=== PATIENT | female | born 1985 | race Caucasian/White ===

== ENCOUNTER 2018-04-15 10:12 | Inpatient (IN) | payer BC ==
[~2018-04-15] VITALS: Ht 170.2 cm; Wt 122.7 kg
[~2018-04-15 10:12] MED LIST: DOCU-131 PO; IBUP-1222 PO; OXYC-302 PO; PNV1TABL11 PO
[2018-04-15] MEDS ORDERED: LACTATED RINGERS 1,000 ML IV SCH (10:13)
[2018-04-15] MEDS ORDERED: OXYTOCIN 30U/ 0.9% NaCL 500ML 500 ML IV SCH (10:13)
[2018-04-15] MEDS ORDERED: SODIUM CITRATE/CITRIC ACID 30 ML UDC ONE (10:24)
[2018-04-15] MEDS ORDERED: OXYTOCIN 30U/ 0.9% NaCL 500ML 500 ML ONE ×2 (10:24→13:45)
[2018-04-15] MEDS ORDERED: METOCLOPRAMIDE 5 MG/ML, 2ML ONE (10:24)
[2018-04-15] MEDS ORDERED: NEWBORN KIT ONE (10:24)
[2018-04-15] MEDS ORDERED: LACTATED RINGERS 1,000 ML IVBOLUS ONE (10:30)
[2018-04-15] MEDS ORDERED: SODIUM CITRATE/CITRIC ACID 30 ML UDC PO ONE (10:30)
[2018-04-15] MEDS ORDERED: METOCLOPRAMIDE 5 MG/ML, 2ML IV ONE (10:30)
[2018-04-15 10:52] LABS: BASOPHILS # (AUTO) 0.03 x10^3/uL (0-0.1); BASOPHILS % (AUTO) 0 % (0-1); EOSINOPHILS # (AUTO) 0.03 x10^3/uL (0-0.4); EOSINOPHILS % (AUTO) 0 % (1-7); LYMPHOCYTES # (AUTO) 1.45 x10^3/uL (1-3.4); LYMPHOCYTES % (AUTO) 15 % (22-44); MD NO; MEAN CORPUSCULAR HEMOGLOBIN 28.3 pg (27.0-34.8); MEAN CORPUSCULAR HGB CONC 33.3 g/dL (32.4-35.8); MEAN PLATELET VOLUME 8.5 fL (7.4-10.4); MONOCYTES # (AUTO) 0.64 x10^3/uL (0.2-0.8); MONOCYTES % (AUTO) 7 % (2-9); NEUTROPHILS # (AUTO) 7.55 x10^3/uL (1.8-6.8); NEUTROPHILS % (AUTO) 78 % (42-75); PLATELET COUNT 214 x10^3/uL (130-400); RED CELL DISTRIBUTION WIDTH 14.7 % (9.6-15.2)
[2018-04-15] MEDS ORDERED: FENTANYL PF 100 MCG/2ML ONE (11:15)
[2018-04-15] MEDS ORDERED: OXYTOCIN 10 UNITS/ML, 1ML ONE (11:15)
[2018-04-15] MEDS ORDERED: CEFAZOLIN 1,000 MG ONE (11:15)
[2018-04-15] MEDS ORDERED: ONDANSETRON 2MG/ML, 2ML ONE (11:15)
[2018-04-15] MEDS ORDERED: SODIUM CHLORIDE 0.9% PF 10ML ONE ×2 (11:16)
[2018-04-15] MEDS ORDERED: HYDROmorphone 2 MG/ML, 1ML ONE (11:16)
[2018-04-15] MEDS ORDERED: DIPH,PERTUSS(ACELL),TET VAC/PF NC IM-VACC PRN (12:00)
[2018-04-15] MEDS: LACTATED RINGERS 1,000 ML IV SCH ×4 (12:00→22:43)
[2018-04-15] MEDS ORDERED: ACETAMINOPHEN 325 MG TABLET PO PRN ×2 (12:00)
[2018-04-15] MEDS ORDERED: CALCIUM CARBONATE 500 MG TAB.CHEW PO PRN (12:00)
[2018-04-15] MEDS ORDERED: MISOPROSTOL 200 MCG TABLET PR PRN (12:00)
[2018-04-15] MEDS ORDERED: MEASLES,MUMPS&RUBELLA VACC/PF 0.5 ML SQ-VACC PRN (12:00)
[2018-04-15] MEDS ORDERED: morphine SULFATE 10 MG/ML, 1ML IVPush PRN ×2 (12:00)
[2018-04-15] MEDS ORDERED: ONDANSETRON 2MG/ML, 2ML IV PRN (12:00)
[2018-04-15] MEDS: OXYTOCIN 30U/ 0.9% NaCL 500ML 500 ML IV SCH ×2 (14:11→22:00)
[2018-04-15] MEDS ORDERED: KETOROLAC 30 MG/1 ML ONE (14:18)
[2018-04-15] MEDS: KETOROLAC 30 MG/1 ML IV SCH ×2 (14:19→20:21)
[2018-04-15] MEDS ORDERED: OXYcodone/APAP 5/325MG TABLET ONE ×2 (14:25→15:09)
[2018-04-15] MEDS: OXYcodone/APAP 5/325MG TABLET PO PRN ×4 (14:26→22:38)
[2018-04-15] MEDS ORDERED: DOCUSATE 100 MG CAPSULE ONE (15:09)
[2018-04-15 15:10] VITALS: BP 112/64
[2018-04-15] MEDS: DOCUSATE 100 MG CAPSULE PO PRN (15:10)
[2018-04-15 20:00] VITALS: BP 103/67
[2018-04-15 21:09] LABS: BASOPHILS # (AUTO) 0.01 x10^3/uL (0-0.1); BASOPHILS % (AUTO) 0 % (0-1); EOSINOPHILS # (AUTO) 0.04 x10^3/uL (0-0.4); EOSINOPHILS % (AUTO) 0 % (1-7); LYMPHOCYTES # (AUTO) 1.81 x10^3/uL (1-3.4); LYMPHOCYTES % (AUTO) 16 % (22-44); MD NO; MEAN CORPUSCULAR HEMOGLOBIN 28.1 pg (27.0-34.8); MEAN CORPUSCULAR HGB CONC 33.2 g/dL (32.4-35.8); MEAN CORPUSCULAR VOLUME 84.6 fL (80-100); MEAN PLATELET VOLUME 8.5 fL (7.4-10.4); MONOCYTES # (AUTO) 0.84 x10^3/uL (0.2-0.8); MONOCYTES % (AUTO) 7 % (2-9); NEUTROPHILS # (AUTO) 8.79 x10^3/uL (1.8-6.8); NEUTROPHILS % (AUTO) 77 % (42-75); PLATELET COUNT 188 x10^3/uL (130-400); RED BLOOD COUNT 3.62 x10^6/uL (3.82-5.3); RED CELL DISTRIBUTION WIDTH 14.8 % (9.6-15.2)
[2018-04-16 00:40] VITALS: BP 101/67
[2018-04-16] MEDS: KETOROLAC 30 MG/1 ML IV SCH ×4 (02:18→20:12)
[2018-04-16] MEDS: OXYcodone/APAP 5/325MG TABLET PO PRN ×5 (03:14→20:12)
[2018-04-16 03:25] VITALS: BP 101/67
[2018-04-16] MEDS: LACTATED RINGERS 1,000 ML IV SCH ×5 (04:00→20:00)
[2018-04-16] MEDS: OXYTOCIN 30U/ 0.9% NaCL 500ML 500 ML IV SCH ×2 (07:17→18:00)
[2018-04-16] MEDS: DOCUSATE 100 MG CAPSULE PO PRN ×2 (07:45→20:12)
[2018-04-16] MEDS: PRENATAL VIT/IRON/FA 1 EACH TABLET PO SCH (07:45)
[2018-04-16] MEDS: SIMETHICONE 80 MG CHEW TAB PO PRN ×2 (07:45→20:12)
[2018-04-16 07:50] VITALS: BP 109/74
[2018-04-16 19:31] VITALS: BP 109/62
[2018-04-17] MEDS: OXYcodone/APAP 5/325MG TABLET PO PRN ×5 (00:49→20:12)
[2018-04-17] MEDS: KETOROLAC 30 MG/1 ML IV SCH ×2 (01:47→08:27)
[2018-04-17] MEDS: OXYTOCIN 30U/ 0.9% NaCL 500ML 500 ML IV SCH ×2 (04:00→13:46)
[2018-04-17] MEDS: LACTATED RINGERS 1,000 ML IV SCH ×5 (04:00→20:00)
[2018-04-17 07:20] VITALS: BP 100/66
[2018-04-17] MEDS ORDERED: IBUPROFEN 600 MG TABLET ONE (08:24)
[2018-04-17] MEDS: DOCUSATE 100 MG CAPSULE PO PRN ×2 (08:26→20:12)
[2018-04-17] MEDS: PRENATAL VIT/IRON/FA 1 EACH TABLET PO SCH (08:26)
[2018-04-17] MEDS: IBUPROFEN 600 MG TABLET PO PRN ×3 (08:26→21:42)
[2018-04-17 19:55] VITALS: BP 100/58
[2018-04-17] MEDS: SIMETHICONE 80 MG CHEW TAB PO PRN (20:12)
[2018-04-18] MEDS: OXYcodone/APAP 5/325MG TABLET PO PRN ×4 (01:54→14:38)
[2018-04-18] MEDS: LACTATED RINGERS 1,000 ML IV SCH ×4 (04:00→12:00)
[2018-04-18] MEDS: IBUPROFEN 600 MG TABLET PO PRN ×2 (04:07→10:34)
[2018-04-18] MEDS: SIMETHICONE 80 MG CHEW TAB PO PRN (04:07)
[2018-04-18 07:30] VITALS: BP 108/70
[2018-04-18] MEDS: DOCUSATE 100 MG CAPSULE PO PRN (07:56)
[2018-04-18] MEDS: PRENATAL VIT/IRON/FA 1 EACH TABLET PO SCH (07:56)
[2018-04-18] MEDS: OXYTOCIN 30U/ 0.9% NaCL 500ML 500 ML IV SCH ×2 (10:00)
== END 2018-04-18 14:45 | disposition home or self-care (01) | DRG 788 ==
LOC: UNDOADMIN 10:12 → LDIP 10:12 → 2NW 15:20
PROVIDERS: ADMIT Obstetrics & Gynecology; ATTEND Obstetrics & Gynecology
PROC: 10D00Z1 Extraction of Products of Conception, Low, Open Approach (ICD-10-PCS; principal; 2018-04-15)
DX: O77.0 Labor and delivery complicated by meconium in amniotic fluid (principal); O34.211 Maternal care for low transverse scar from previous cesarean delivery; Z37.0 Single live birth; Z3A.39 39 weeks gestation of pregnancy
CPT/HCPCS: 36415; 82803; 85025; 86850; 86900; G0378; J0690; J1170; J1885; J2405; J3010; J2590; J2765; J7120

== ENCOUNTER 2019-01-07 08:00 | Emergency (ER) | payer BC ==
[~2019-01-07] VITALS: Ht 170.2 cm; Wt 117.3 kg
[2019-01-07] MEDS ORDERED: NORE0.352 PO (08:33)
[2019-01-07 08:59] LABS: MICROSCOPIC INDICATED
[2019-01-07 09:21] LABS: CULTURE INDICATED? NO
[2019-01-07] MEDS ORDERED: SODIUM CHLORIDE FLUSH 10ML SYR IVF ONE (09:30)
[2019-01-07] MEDS ORDERED: ONDANSETRON 2MG/ML, 2ML IVPush ONE (09:30)
[2019-01-07] MEDS ORDERED: KETOROLAC 30 MG/1 ML IVPush ONE (09:30)
[2019-01-07] MEDS ORDERED: ONDANSETRON 2MG/ML, 2ML ONE (09:49)
[2019-01-07] MEDS ORDERED: KETOROLAC 30 MG/1 ML ONE (09:49)
--- NOTE | 2019-01-07 10:00 | NUR ---
PT UPRIGHT ON GURNEY AWAKE & CALM, RESPONDS APPROP TO STAFF, AWAITING PIV & CT, LABS IN PROCESS, COMFORT MEASURES PROVIDED, CALL LIGHT WITHIN REACH.
--- NOTE | 2019-01-07 10:05 | NUR ---
THIS RN UNABLE TO OBTAIN PIV DESPITE MULT ATTEMPTS, AWAITING OTHER LADLE PULLER ASSIST.
[2019-01-07 10:12] LABS: BASOPHILS # (AUTO) 0.04 x10^3/uL (0-0.1); BASOPHILS % (AUTO) 1 % (0-1); EOSINOPHILS # (AUTO) 0.08 x10^3/uL (0-0.4); EOSINOPHILS % (AUTO) 1 % (1-7); LYMPHOCYTES # (AUTO) 1.49 x10^3/uL (1-3.4); LYMPHOCYTES % (AUTO) 23 % (22-44); MD NO; MEAN CORPUSCULAR HGB CONC 31.9 g/dL (32.4-35.8); MEAN CORPUSCULAR VOLUME 84.8 fL (80-100); MEAN PLATELET VOLUME 8.4 fL (7.4-10.4); MONOCYTES # (AUTO) 0.47 x10^3/uL (0.2-0.8); MONOCYTES % (AUTO) 7 % (2-9); NEUTROPHILS # (AUTO) 4.43 x10^3/uL (1.8-6.8); NEUTROPHILS % (AUTO) 68 % (42-75); PLATELET COUNT 240 x10^3/uL (130-400); RED BLOOD COUNT 5.25 x10^6/uL (3.82-5.3); RED CELL DISTRIBUTION WIDTH 15.3 % (9.6-15.2)
--- NOTE | 2019-01-07 10:18 | NUR ---
TASK RN: STAFF MEMBER BEDSIDE ATTEMPTING PIV ACCESS.
[2019-01-07 10:24] LABS: ANION GAP 4 mmol/L (5-15); CHLORIDE 110 mmol/L (98-107)
[2019-01-07 10:25] LABS: ALBUMIN 4.2 g/dL (3.4-5.0); CALCIUM 8.7 mg/dL (8.5-10.1); CREATININE 0.72 mg/dL (0.55-1.02)
--- NOTE | 2019-01-07 11:03 | NUR ---
PT RETURNED FROM CT, UPRIGHT ON GURNEY AWAKE & COMFORTABLE, RESPONDS APPROP TO STAFF, NAD, COMFORT MEASURES PROVIDED, CALL LIGHT WITHIN REACH.
--- NOTE | 2019-01-07 11:37 | NUR ---
TASK RN, FIRST CONTACT WITH PT. Pt resting on jamel requesting additonal blanket. Provied for pt. Pt appreciative. NADN. No needs expressed.
[2019-01-07 11:38] VITALS: BP 114/89
--- NOTE | 2019-01-07 12:02 | NUR ---
TASK RN: Patient given discharge instructions and they have confirmed that they understand the instructions. Patient ambulatory with steady gait. Pt left with d/c paperwork and all personal belongings. NADN. No other needs expressed.
== END 2019-01-07 12:06 | disposition home or self-care (01) ==
LOC: ED 08:52
DX: R10.32 Left lower quadrant pain (principal); M54.9 Dorsalgia, unspecified; R68.83 Chills (without fever)
CPT/HCPCS: 36415; 74176; 80048; 81001; 82040; 84703; 85025; 96374; 96375; 99284; J1885; J2405

== ENCOUNTER 2019-02-10 12:43 | Outpatient (CLI) | payer BC ==
[~2019-02-10 12:43] MED LIST changes: +NORE0.352 PO
== END 2019-02-10 23:59 | disposition home or self-care (01) ==
LOC: CVU 12:43
PROVIDERS: ATTEND Internal Medicine Cardiovascular Disease
DX: I34.0 Nonrheumatic mitral (valve) insufficiency (principal)
CPT/HCPCS: 0399T; 93306